=== PATIENT | male | born 2000 | race Two or more races ===

== ENCOUNTER 2018-05-19 13:41 | Emergency (ER) | payer OTHER ==
[~2018-05-19] VITALS: Ht 172.7 cm; Wt 77.1 kg
[2018-05-19] MEDS ORDERED: ZOLOFT25 MG PO (13:50)
[2018-05-19] MEDS ORDERED: DEPAKOTE ER500 MG PO (13:50)
== END 2018-05-19 14:58 | disposition home or self-care (01) ==
LOC: ER 13:41
DX: S61.012A Laceration without foreign body of left thumb without damage to nail, initial encounter (principal); W26.0XXA Contact with knife, initial encounter; Y93.89 Activity, other specified; Y92.69 Other specified industrial and construction area as the place of occurrence of the external cause; Y99.8 Other external cause status

== ENCOUNTER 2018-05-27 07:17 | Emergency (ER) | payer OTHER ==
[~2018-05-27] VITALS: Ht 172.7 cm; Wt 80.7 kg
[~2018-05-27 07:17] MED LIST: DEPAKOTE ER500 MG PO; ZOLOFT25 MG PO
== END 2018-05-27 08:49 | disposition home or self-care (01) ==
LOC: ER 07:17
DX: Z48.02 Encounter for removal of sutures (principal)

== ENCOUNTER 2019-02-09 15:53 | Emergency (ER) | payer OTHER ==
[~2019-02-09] VITALS: Ht 170.2 cm; Wt 75.7 kg
== END 2019-02-09 17:06 | disposition home or self-care (01) ==
LOC: ER 15:53
DX: S01.82XA Laceration with foreign body of other part of head, initial encounter (principal); W45.8XXA Other foreign body or object entering through skin, initial encounter; Y93.89 Activity, other specified; Y92.69 Other specified industrial and construction area as the place of occurrence of the external cause; Y99.8 Other external cause status